=== PATIENT | female | born 1955 | race Two or more races ===

== ENCOUNTER 2019-07-30 03:29 | Emergency (ER) | payer MEDICAID ==
[~2019-07-30] VITALS: Ht 167.6 cm; Wt 104.3 kg
[2019-07-30 09:25] VITALS: BP 130/83
== END 2019-07-30 09:35 | disposition home or self-care (01) ==
LOC: ER 03:29
DX: S83.91XA Sprain of unspecified site of right knee, initial encounter (principal); F17.210 Nicotine dependence, cigarettes, uncomplicated; E11.9 Type 2 diabetes mellitus without complications; F41.9 Anxiety disorder, unspecified; W08.XXXA Fall from other furniture, initial encounter; Y93.89 Activity, other specified; Y92.512 Supermarket, store or market as the place of occurrence of the external cause; Y99.8 Other external cause status
CPT/HCPCS: 29505; 70450; 73560; 82962